=== PATIENT | female | born 2000 | race Caucasian/White ===

== ENCOUNTER 2024-04-15 05:14 | Inpatient (IN) | payer OTHER ==
[2024-04-15 05:44] VITALS: BMI 26.6
[2024-04-15] MEDS ORDERED: Tranexamic Acid 1,000 MG/10 ML VIAL IVP PRN (08:31)
[2024-04-15] MEDS ORDERED: Carboprost 250 MCG/ML AMP IM PRN (08:31)
[2024-04-15] MEDS ORDERED: HYDROcodone/Acetaminophen 5/325 mg Tablet PO PRN (08:31)
[2024-04-15] MEDS ORDERED: Methylergonovine 0.2 MG/ML VIAL IM PRN (08:31)
[2024-04-15] MEDS ORDERED: Ondansetron PF 4 MG/2 ML Vial IVP PRN ×2 (08:31→14:28)
[2024-04-15] MEDS ORDERED: Misoprostol 200 MCG TAB PR PRN (08:31)
[2024-04-15] MEDS ORDERED: Ibuprofen 800 MG TAB PO PRN (08:31)
[2024-04-15] MEDS ORDERED: Promethazine HCl 25 MG/ML VIAL IM PRN ×2 (08:31→14:28)
[2024-04-15] MEDS ORDERED: fentaNYL 50 mcg/mL 1 mL Vial SLOW IVP PRN (08:31)
[2024-04-15] MEDS ORDERED: Acetaminophen 500 MG TAB PO PRN (08:31)
[2024-04-15] MEDS ORDERED: Lidocaine 1% (PF) 30 ML VIAL SC PRN (08:31)
[2024-04-15] MEDS ORDERED: hydrALAZINE 20 MG/ML VIAL SLOW IVP PRN (08:31)
[2024-04-15] MEDS ORDERED: Diphenoxylate HCl/Atropine Tablet PO PRN (08:31)
[2024-04-15] MEDS ORDERED: Oxytocin 30 units/NS 500 ML 500 ML IV SCH (08:45)
[2024-04-15 09:08] LABS: Hematocrit 30.3 % (34.9-44.5); Mean Corpuscular Hemoglobin 26.7 pg (27.0-33.0); Mean Corpuscular Volume 80.8 fL (81.6-98.3); Mean Platelet Volume 11.3 fL (7.4-10.4); Platelet Count 191 10x3/uL (150-450); RBC Distribution Width 13.2 % (11.5-14.5); Red Blood Cell (RBC) Count 3.75 10x6/uL (3.90-5.03); White Blood Cell (WBC) Count 8.1 10x3/uL (3.5-10.5)
[2024-04-15 09:38] LABS: HBsAg Index 0.38 S/CO (0-0.99); Hep B Surf Ag - L&D Non-Reactive S/CO (NonReactive)
[2024-04-15 09:40] LABS: Syphilis Antibody Nonreactive (Nonreactive); Syphilis Antibody Index 0.07 S/CO (<1.00 Non-Reactive)
[2024-04-15] MEDS: Oxytocin 30 units/NS 500 ML 500 ML IV SCH (11:49)
[2024-04-15] MEDS ORDERED: Acetaminophen 325 MG TAB PO PRN (14:28)
[2024-04-15] MEDS ORDERED: diphenhydrAMINE 50 MG/ML VIAL IVP PRN (14:28)
[2024-04-15] MEDS ORDERED: Lactated Ringer's 500 ML IV PRN (14:28)
[2024-04-15] MEDS ORDERED: Moisturizing Cream (Eucerin) 113 GM JAR TOP PRN (14:28)
[2024-04-15] MEDS ORDERED: Naloxone HCl 0.4 mg/ml Vial IVP PRN ×2 (14:28)
[2024-04-15] MEDS ORDERED: Communication Order-Pharmacy FS SCH (14:30)
[2024-04-15] MEDS: fentaNYL 2 mcg/Ropivacaine 0.2% Epidural 100 ML CADD EPIDURAL SCH (15:23)
[2024-04-15] MEDS: ePHEDrine Sulfate 50 MG/10 ML VIAL SLOW IVP PRN (15:34)
[2024-04-16] MEDS ORDERED: hydrALAZINE 20 MG/ML VIAL SLOW IVP PRN (01:36)
[2024-04-16] MEDS ORDERED: Bisacodyl 10 MG SUPP PR PRN (01:36)
[2024-04-16] MEDS ORDERED: Milk Of Magnesia 30 ML UDCUP PO PRN (01:36)
[2024-04-16] MEDS: Ibuprofen 800 MG TAB PO SCH ×2 (02:41→21:15)
[2024-04-16] MEDS ORDERED: Ibuprofen 800 MG TAB PO SCH (06:00)
[2024-04-16] MEDS: HYDROcodone/Acetaminophen 5/325 mg Tablet PO PRN (09:25)
[2024-04-16] MEDS: Docusate 100 MG CAP PO SCH (09:25)
[2024-04-16] MEDS: Ferrous Sulfate 325 MG TAB PO SCH (09:27)
[2024-04-16] MEDS: Benzocaine-Menthol 82.5 ML CAN TOP PRN (14:35)
[2024-04-17 02:44] VITALS: TEMP 98.5
[2024-04-17] MEDS: Boostrix 0.5 ML (Tdap) VIAL (>/=7 yrs of age) IM ONE (07:35)
[2024-04-17 08:30] VITALS: BP 118/59
== END 2024-04-17 11:10 | disposition home or self-care (01) | DRG 807 ==
LOC: CSHLD/OP 05:14 → CSHLD 09:02 → CSHPP 04-16 01:20
PROVIDERS: ADMIT Family Medicine; ATTEND Family Medicine
PROC: 10E0XZZ Delivery of Products of Conception, External Approach (ICD-10-PCS; principal; 2024-04-15)
PROC: 0UQMXZZ Repair Vulva, External Approach (ICD-10-PCS; 2024-04-15)
DX: O42.02 Full-term premature rupture of membranes, onset of labor within 24 hours of rupture (principal); Z37.0 Single live birth; Z3A.38 38 weeks gestation of pregnancy; O69.81X0 Labor and delivery complicated by cord around neck, without compression, not applicable or unspecified; O70.0 First degree perineal laceration during delivery
CPT/HCPCS: 36415; 51702; 85027; 86780; 86850; 86900; 86901; 87340; 99285; J2590

== ENCOUNTER 2024-05-19 13:05 | Emergency (ER) | payer OTHER ==
[2024-05-19 15:04] LABS: Bilirubin Neg (Negative); Blood, Urine 25 (Negative); Clarity Cloudy (Clear); Glucose, Urine (Dipstick) Normal (Negative); Ketone, Urine Negative (Negative); Leukocyte 500 (Negative); Nitrite Negative (Negative); Protein, Urine (Dipstick) 15 mg/dl (Neg-Trace); Urobilinogen Normal mg/dL (Less than 2)
[2024-05-19 15:05] LABS: Pregnancy Test - Urine (BHCG) Negative (Negative); Pregu Control Background? CLEAR/WHITE (CLR/WHITE); Pregu Control Bar Appear? YES (CONTROL BAR)
[2024-05-19 15:47] LABS: CAUTI Indications for Culture Pelvic or flank pain; RBC/HPF 0-3 HPF (0-3)
[2024-05-19 15:48] LABS: Bacteria/HPF Rare-Few HPF (None Seen)
[2024-05-19 15:49] LABS: Urine Culture Reflex No No
[2024-05-20 01:26] LABS: Chlamydia by PCR, Vaginal Swab Not Detected (NotDetected); GC by PCR, Vaginal Swab Not Detected (NotDetected)
== END 2024-05-19 15:05 | disposition home or self-care (01) ==
LOC: CSHERS 13:05
DX: N76.0 Acute vaginitis (principal)
CPT/HCPCS: 81001; 81025; 87480; 87491; 87510; 87591; 87660; 99283